=== PATIENT | male | born 1955 | race Caucasian/White ===

== ENCOUNTER 2019-08-18 11:19 | Inpatient (IN) ==
[2019-08-18 11:57] LABS: ALLEN TEST YES; BE 5.5 mmoll (-3.0-3.0); BLOOD TYPE ARTERIAL; HCO3-(ACT) 29.1 mmoll (20.0-26.0); METHB 0.3 % (0.0-1.5); O2(CT) 15.6 mL/dL (15.0-23.0); O2HB 93.8 % (95.0-99.0); PCO2(98.6) 42 mmHg (35-45); PO2(98.6) 62 mmHg (60-100); SAMPLE BLOOD; SAO2 96.8 % (95.0-100.0); THB 11.8 g/dL (11.5-17.4); pH(98.6) 7.46 (7.35-7.45)
[2019-08-18 11:59] LABS: MODALITY ROOM AIR
[2019-08-18 12:05] LABS: URINE SOURCE CLEAN CATCH
[2019-08-18 12:08] LABS: BILIRUBIN URINE NEGATIVE (NEGATIVE); BLOOD URINE NEGATIVE (NEGATIVE); COLOR STRAW; GLUCOSE URINE NEGATIVE (NEGATIVE); KETONE URINE NEGATIVE (NEGATIVE); LEUKOCYTES URINE NEGATIVE (NEGATIVE); NITRITE URINE NEGATIVE (NEGATIVE); PH URINE 6.5; PROTEIN URINE NEGATIVE (NEGATIVE); SP GRAVITY URINE 1.009; TURBIDITY URINE CLEAR (CLEAR); UR EPITHELIAL CELLS <10 /HPF (<10); URINE BACTERIA NEGATIVE /HPF; URINE RBC <10 /HPF (<10); URINE WBC <10 /HPF (<10); UROBILINOGEN URINE NORMAL (NORMAL)
[2019-08-18 12:09] LABS: BASO# 0.02 X1000 (0.0-0.2); BASO% 0.3 % (0.0-0.8); EOS# 0.11 X1000 (0.0-0.7); EOS% 1.9 % (0.0-10.0); HEMATOCRIT 37.5 % (42.0-52.0); HEMOGLOBIN 12.4 g/dL (14.0-18.0); LYMPH# 1.58 X1000 (1.2-3.4); LYMPH% 27.6 % (20.5-51.1); MCH 29.8 PG (27-31); MCHC 33.1 g/dL (33-37); MCV 90.1 FL (81-99); MONO# 0.45 X1000 (0.11-0.59); MONO% 7.9 % (1.7-9.3); MPV 9.5 FL (7.4-10.4); NEUT# 3.57 X1000 (1.4-6.5); NEUT% 62.3 % (42.2-75.2); PLT 214 X1000 (130-400); RBC 4.16 XMIL (4.7-6.1); RDW 12.7 % (11.5-14.5); WBC 5.73 X1000 (4.8-10.8)
--- NOTE | 2019-08-18 12:16 | Diag Imaging Result Doc PS360 ---
CT HEAD W/O CONTRAST - 08/18/2019 INDICATION: AMS COMPARISON: None FINDINGS: The ventricles and sulci are normal in size and contour. No intracranial mass or hemorrhage. There is some trace subcortical white matter chronic microvascular ischemia, mainly in the right frontal lobe. The skull is intact. The sinuses, mastoids, and middle ears are clear. IMPRESSION: No acute process. This exam was performed using automated exposure control, adjustment of mA or kV according to patient size, and/or use of iterative reconstruction technique Electronically signed by Pepe Donahue 08/18/2019 12:14 PM
[2019-08-18 12:28] LABS: UR AMPHETAMINES QUAL NONE DETECTED (NONE DETECT); UR BARBITUATES QUAL NONE DETECTED (NONE DETECT); UR BENZODIAZEPIN QUAL NONE DETECTED (NONE DETECT); UR CANNABINOIDS QUAL NONE DETECTED (NONE DETECT); UR COCAINE QUAL NONE DETECTED (NONE DETECT); UR METHADONE QUAL NONE DETECTED (NONE DETECT); UR OPIATES QUAL NONE DETECTED (NONE DETECT); UR OXYCODONE QUAL NONE DETECTED (NONE DETECT); UR PCP QUAL NONE DETECTED (NONE DETECT)
[2019-08-18 12:38] LABS: AGAP 11; ALB/GLOB RATIO 1.1; ALBUMIN 3.9 g/dL (3.5-5.0); ALKALINE PHOSPHATASE 107 U/L (32-122); BUN 25 mg/dL (8-22); CALCIUM 9.5 mg/dL (8.8-10.2); CHLORIDE 102 mmol/L (98-107); CK PROFILE 167 U/L (24-204); COSMO 286; CREATININE 1.2 mg/dL (0.7-1.2); ESTIMATED GFR > 60; GLUCOSE 109 mg/dL (70-104); GOT 21 U/L (10-34); GPT 15 U/L (10-44); INR 0.95; POTASSIUM 4.2 mmol/L (3.5-5.1); PROTIME 12.7 Seconds (11.0-16.0); SODIUM 141 mmol/L (136-145); TCO2 28 mmol/L (25-35); TOTAL PROTEIN 7.4 g/dL (6.3-8.3)
[2019-08-18 12:39] LABS: PTT 30.5 Seconds (22.3-41.8)
--- NOTE | 2019-08-18 12:55 | EKG Report ---
Test Performed on : 08/18/2019 12:44:19 PM Test Reason : SOB Blood Pressure : / mmHG Vent. Rate : 072 BPM Atrial Rate : 072 BPM P-R Int : 170 ms QRS Dur : 086 ms QT Int : 360 ms P-R-T Axes : 056 -31 241 degrees QTc Int : 394 ms Normal sinus rhythm. Left axis deviation T wave abnormality, consider lateral ischemia Abnormal ECG When compared with ECG of 07-JUL-2019 19:44, (Unconfirmed) No significant change was found Unconfirmed Result
--- NOTE | 2019-08-18 14:37 | Diag Imaging Result Doc PS360 ---
CT ANGIOGRM PULMONARY ARTERIES - 08/18/2019 INDICATION: difficulty breathing, left arm swollen TECHNIQUE: Axial CT images were obtained after administering intravenous contrast. Coronal MIP images were generated. COMPARISON: None FINDINGS: There is no pulmonary embolism. There is mild cardiomegaly. There is some thinning of the myocardium at the cardiac apex, likely an old apical infarction. Great vessels are normal. The SVC and left central veins are patent. No adenopathy. The lungs and airways are clear. Upper abdominal images are unremarkable. Bones are intact and well mineralized. IMPRESSION: Cardiomegaly. Probable old left ventricular apex infarction. No acute process. This exam was performed using automated exposure control, adjustment of mA or kV according to patient size, and/or use of iterative reconstruction technique Electronically signed by Pepe Donahue 08/18/2019 2:35 PM
--- NOTE | 2019-08-18 15:29 | PROVIDER DOCUMENTATION ---
This chart was entered by Krissy Byers Scribe, acting as scribe for Suhail Samuels MD. HPI-General Adult - General Chief Complaint: Syncope Stated Complaint: SYNCOPE EPISODES Time Seen by Provider: 08/18/19 11:22 Source: patient, family, EMS Allergies/Adverse Reactions: Patient Allergies Allergy/AdvReac Type Severity Reaction Status Date / Time No Known Allergies Allergy Verified 07/07/19 18:09 Home Medications: Home Medication List Medication Instructions Recorded Confirmed Last Taken Type Aspirin EC 81 mg PO DAILY 03/11/18 08/18/19 Unknown History Atorvastatin Calcium 40 mg PO DAILY 03/11/18 08/18/19 Unknown History Tamsulosin HCl 0.4 mg PO DAILY 03/11/18 08/18/19 Unknown History Buprenorphine HCl/Naloxone HCl 1 tab SUBLINGUAL BID 08/18/19 08/18/19 Unknown History [Buprenorphin-Naloxon 8-2 mg Sl] Carvedilol 6.25 mg PO BID 08/18/19 08/18/19 Unknown History Cholecalciferol (Vit D3) [Vitamin 1 tab PO DAILY 08/18/19 08/18/19 Unknown History D3] Clopidogrel Bisulfate [Clopidogrel] 75 mg PO DAILY 08/18/19 08/18/19 Unknown History Divalproex Sodium [Divalproex 3 tab PO DAILY 08/18/19 08/18/19 Unknown History Sodium ER] Duloxetine HCl 60 mg PO DAILY 08/18/19 08/18/19 Unknown History Furosemide 40 mg PO DAILY 08/18/19 08/18/19 Unknown History Gabapentin 1 cap PO TID 08/18/19 08/18/19 Unknown History Lisinopril 40 mg PO DAILY 08/18/19 08/18/19 Unknown History Mirtazapine 15 mg PO HS 08/18/19 08/18/19 Unknown History Multivitamin [Multivitamins] 1 ea PO DAILY 08/18/19 08/18/19 Unknown History Naloxone HCl [Narcan] 4 mg NS ONCE PRN PRN 08/18/19 08/18/19 Unknown History Pantoprazole Sodium 40 mg PO DAILY 08/18/19 08/18/19 Unknown History Sildenafil Citrate 100 mg PO DIRECTED 08/18/19 08/18/19 Unknown History Spironolactone 25 mg PO DAILY 08/18/19 08/18/19 Unknown History - History of Present Illness -Gen Adult Nature of Presenting Problems: Patient is a 63 y/o male presenting to the ED today c/o syncopal episodes. Patient was picked up by EMS at [facility] after falling down from a suspected syncopal episodes. Patient reports he recalls the incident and states he has had multiple episodes over the last 2-3 days. Patient's reports that patient has been "falling asleep standing up" since Friday. reports patient was seen Friday at [facility] because of these symptoms and altered mental status. states they thought his problems was "neurological". Patient reports he is supposed to be scheduling for a pacemaker and defibrillator implant soon with the [facility] for CHF. Patient takes Sub oxone and was given 2 Narcan in route to the ER with EMS and they report that he became angry but did not become significantly more alert. Patient also complains of shortness of breath. Patient is drowsy throughout exam. Denies all other signs/symptoms. Onset/Duration: reports: 3 days ago Timing: reports: intermittent Associated Symptoms: reports: syncope Similar Symptoms Previously?: Yes Recently seen or treated by another doctor?: Yes ([facility]) Review of Systems - Adult - REVIEW OF SYSTEMS - ADULT Constitutional: reports: no symptoms reported. denies: chills, fever Eyes: reports: no symptoms reported Ears, Nose, Mouth & Throat: reports: no symptoms reported Cardiovascular: reports: no symptoms reported. denies: chest pain Respiratory: reports: no symptoms reported, shortness of breath. denies: cough Gastrointestinal: reports: no symptoms reported. denies: abdominal pain, diarrhea, nausea, vomiting Genitourinary: reports: no symptoms reported Musculoskeletal: reports: no symptoms reported Integumentary: reports: no symptoms reported Neurological: reports: see HPI, syncope Psychiatric: reports: no symptoms reported Endocrine: reports: no symptoms reported Hematologic/Lymphatic: reports: no symptoms reported Allergic/Immunologic: reports: no symptoms reported All Other Systems: Reviewed and Negative Past History - Adult - PAST MEDICAL HISTORY-ADULT Review of Records: reports: Old Records Reviewed, Nursing Assessment Review, Medications Reviewed, Social history reviewed & non-contributory. Major Childhood Illnesses: reports: denies history Cardiovascular: reports: A-Fib, CHF, HTN, hyperlipidemia, NH, other Respiratory: reports: COPD Gastrointestinal: reports: GERD Obstetrical/Gynecological: reports: denies history Genitourinary: reports: denies history Musculoskeletal: reports: denies history Neurological: reports: denies history Endocrine/Immune: reports: denies history Other Conditions: reports: denies history - PRIOR SURGERIES/PROCEDURES Surgical/Procedure History: reports: other (Cardiac stents) - IMMUNIZATION STATUS Childhood Immunizations: See Nurse Assessment Flu Vaccine: See Nurse Assessment - FAMILY HISTORY Family History: reviewed, not pertinent Physical Exam-General - PHYSICAL EXAM-ADULT Initial Vital Signs Reviewed: Yes - CONSTITUTIONAL General Appearance: no apparent distress, slow to respond, other (drowsy) - EYES Eyes: pink conjunctivae, other (pinpoint pupils) - HEAD, EARS, NOSE, MOUTH & THROAT HENMT: normocephalic/atraumatic, moist mucous membranes - NECK Neck: full range of motion, normal inspection - RESPIRATORY Respiratory: lungs clear, normal breath sounds, no respiratory distress, no accessory muscle use - CARDIOVASCULAR Cardiovascular: regular rate, rhythm, no edema - GASTROINTESTINAL (ABDOMEN) Abdominal Exam: non tender, soft - LYMPHATIC Lymphatic: no adenopathy - MUSCULOSKELETAL Back Exam: normal inspection Extremity: normal range of motion, normal gait, normal inspection - SKIN Integumentary: normal color, normal turgor, warm/dry - NEUROLOGIC Neurologic: grossly normal, no motor/sensory deficits - PSYCHIATRIC Psych/Mental Status: normal mood/affect, normal thought content, normal thought process Progress - PLAN OF CARE/RESULTS Result Diagrams: 08/18/19 11:53 08/18/19 11:53 - REASSESSMENT Reassessment #1 Time Reassessed: 14:48 Status: unchanged (Patient continues to become apneic when falls asleep, and is falling asleep every few minutes. CTs and labs are essentially normal. Patient requests transfer to the [facility] where he is supposed to be on the schedule for AICD implantation) - EKG 1 Time of EKG reading by physician:: 13:01 EKG Read and Signed by:: Suhail Samuels EKG Interpretation (*Must complete 3 of following elements*): Abnormal Rate: 72 Rhythm: Normal sinus rhythm [place]: left QRS: other (poor R-wave progression) ST Wave: non-specific ST changes - CT/MRI 1 CT Study: Head Impression: See EMR Report (CT HEAD W/O CONTRAST - 08/18/2019 INDICATION: AMS COMPARISON: None FINDINGS: The ventricles and sulci are normal in size and contour. No intracranial mass or hemorrhage. There is some trace subcortical white matter chronic microvascular ischemia, mainly in the right frontal lobe. The skull is intact. The sinuses, mastoids, and middle ears are clear. IMPRESSION: No acute process. This exam was performed using automated exposure control, adjustment of mA or kV according to patient size, and/or use of iterative reconstruction technique Electronically signed by Pepe Donahue 08/18/2019 12:14 PM 08/18/19 1214 Interpreting Physician: Pepe Donahue MD Dictated Date/Time: 08/18/19 1213 cc: Suhail Samuels MD; None,PCP) 2 CT Study: other (pulmonary arteriogram) Impression: See EMR Report (CT ANGIOGRM PULMONARY ARTERIES - 08/18/2019 INDICATION: difficulty breathing, left arm swollen TECHNIQUE: Axial CT images were obtained after administering intravenous contrast. Coronal MIP images were generated. COMPARISON: None FINDINGS: There is no pulmonary embolism. There is mild cardiomegaly. There is some thinning of the myocardium at the cardiac apex, likely an old apical infarction. Great vessels are normal. The SVC and left central veins are patent. No adenopathy. The lungs and airways are clear. Upper abdominal images are unremarkable. Bones are intact and well mineralized. IMPRESSION: Cardiomegaly. Probable old left ventricular apex infarction. No acute process. This exam was performed using automated exposure control, adjustment of mA or kV according to patient size, and/or use of iterative reconstruction technique Electronically signed by Pepe Donahue 08/18/2019 2:35 PM 08/18/19 1435 Interpreting Physician: Pepe Donahue MD Dictated Date/Time: 08/18/19 1433 cc: Suhail Samuels MD; None,PCP) - CONSULTS/PCP/HOSPITALIST Notification #1 *Consult/PCP/Hospitalist*: [facility] notified [id number] Time Discussed: 15:15 Reason/Comments: MA is on diversion, admit here #2 Consult: NALDO Red[place] for hospitalist Time Discussed: 15:28 Reason/Comments: Admit to [facility] Consult Disposition: Will see in ED, Admit Departure - Departure Date of Disposition Decision: 08/18/19 Time of Disposition Decision: 15:28 DIAGNOSIS: Sleep apnea in adult, Congestive heart failure with left ventricular diastolic dysfunction, NYHA class 3, Syncope and collapse determined by examination Altered mental status, unspecified Qualifiers: Altered mental status type: somnolence Qualified Code(s): R40.0 - Somnolence Disposition: ADMITTED INPATIENT 09 Certified Medical Emergency: Emergent Condition: Fair Referrals and Follow-Ups: None,PCP [Primary Care Provider] - - Critical Care Note This patient required my direct & personal management of CC.: Yes Total Time (mins): 35 Critical Care Statement: This patient required my direct personal management to treat or rule out processes, the absence of which, could potentiallly result in sudden, clinically significant life or limb threatening deterioration. Attestation - Physician/ ELIZABETH Attestation Patient care was provided by Advanced Practice Provider:: No The physician spent face to face time with patient:: Yes Advanced Practice Provider documentation review:: Supervising physician onsite and consulted in the evaluation and care of this patient. The physician did have a face to face encounter with the patient. This chart was documented by the indicated scribe, (Krissy Byers, Torres) a nd accurately reflects the services I performed and decisions made by me, Suhail Samuels MD, as attested by the provider's signature.
[2019-08-18] MEDS ORDERED: ZOFRAN IV PRN (17:49)
[2019-08-18] MEDS ORDERED: SILDENAFIL CITRATE 100 MG PO SCH (18:13)
[2019-08-18] MEDS: LOVENOX SUBQ SCH (18:50)
--- NOTE | 2019-08-18 21:31 | HISTORY AND PHYSICAL ---
PRIMARY CARE PHYSICIAN: Dr. Mckay at the [facility] in [place]. CHIEF COMPLAINT: Syncopal episode. HISTORY OF PRESENT ILLNESS: Mr. Gtz is a 63-year-old male with a past medical history of CHF, sleep apnea, bipolar disorder, BPH, chronic back pain with opioid abuse on Suboxone, COPD, neuropathy, vitamin D deficiency, coronary artery disease with OK and stent placement. The patient does present to the ER today with complaints of syncopal episode today. The patient's , who is at the bedside, states that today he was at [facility] and he had an episode where he was drifting off to sleep and almost fell. They had to pull a chair up to catch him. He did not fall or hit the floor. The patient and state that he has been having more and more episodes where he has been very lethargic. Patient will drift off to sleep, but wakes suddenly back up. The patient does have significant heart history. states that he is supposed to have a pacemaker defibrillator placed at the [facility] in [place] sometime soon because he has decreased heart function. Ambulance was called at the [facility]. The patient was given a dose of Narcan in the ambulance. It did not have any effect. The patient does have significant episodes while I am speaking with him while he will drift off and wakes suddenly back up. The patient does deny any fever, chills, flu-like symptoms, cough, congestion, neck pain, stiffness, excessive thirst, chest pain, palpitations, orthopnea, PND, leg edema, dyspnea, hemoptysis, nausea, vomiting, hematopoiesis, diarrhea, constipation, dysuria, hematuria, muscle pain or weakness, dizziness, or any other pertinent symptoms at this time. REVIEW OF SYSTEMS: A 10 point review of systems has been obtained, are negative, except that which was stated above in HPI. PAST MEDICAL HISTORY: 1. Coronary artery disease with OK, status post stent placement in 2011. 2. Sleep apnea. 3. Bipolar disorder. 4. Benign prostatic hypertrophy. 5. Congestive heart failure. Unknown EF. 6. Chronic back pain with neuropathy and history of opiate abuse, on Suboxone for over a year. 7. Chronic obstructive pulmonary disease. 8. Vitamin D deficiency. 9. Major depression. PAST SURGICAL HISTORY: 1. Left 5th digit removed. 2. Coronary artery disease with stent placement in 2011. FAMILY HISTORY: Significant for heart disease in his father and Alzheimer's disease in his mother. SOCIAL HISTORY: Patient does live with his in [place]. He states he vapes. He denies any alcohol or illicit drug use. He does state that he used to do cocaine and he used to abuse opiates. He is a retired electricity. ALLERGIES: No known drug allergies. HOME MEDICATIONS: 1. Flomax 0.4 mg p.o. daily. 2. Atorvastatin calcium 40 mg p.o. daily. 3. Aspirin 81 mg p.o. daily. 4. Buprenorphine HCl/naloxone HCl 1 tab sublingual b.i.d. 5. Carvedilol 12.5 mg, 6.25 mg p.o. b.i.d. 6. Depakote 500 mg tablets extended release 3 tablets p.o. daily. 7. Mirtazapine 30 mg tablets 15 mg p.o. at bedtime. 8. Narcan spray 4 mg once p.o. p.r.n. 9. Protonix 40 mg p.o. daily. 10. Spironolactone 25 mg p.o. daily. 11. Vitamin D3 1000 units 1 tablet p.o. daily. 12. Plavix 75 mg day p.o. daily. 13. Duloxetine 60 mg p.o. daily. 14. Furosemide 40 mg p.o. daily. 15. Gabapentin 300 mg p.o. t.i.d. 16. Lisinopril 40 mg p.o. daily. 17. Multivitamin 1 tablet p.o. daily. 18. Sildenafil citrate 100 mg p.o. as directed. PHYSICAL EXAMINATION: VITAL SIGNS: Temperature 97.6, heart rate 76, respiratory rate 16, blood pressure 135/81, O2 saturation 96% on room air. GENERAL: This is a 63-year-old male. He is well nourished and well developed, in no acute distress. HEENT: Atraumatic, normocephalic. Pupils equal, round, reactive to light. Mucous membranes are moist. NECK: Supple. No lymphadenopathy. Trachea is midline. No JVD. CARDIOVASCULAR: Regular rate and rhythm. There is a positive gallop noted. RESPIRATORY: Lung sounds are clear with equal chest excursion. Respirations are nonlabored. No accessory muscle usage. GI: Abdomen is round, nontender, nondistended. Bowel sounds present x4. : There is no suprapubic tenderness noted. Patient is voiding without difficulty. NEUROLOGIC: Patient is awake. He is alert. He does keep falling off to sleep when he is not speaking to me, but he will wake back up and converse appropriately with me. He is not confused. MUSCULOSKELETAL: Full distal strength noted. No abnormalities. No deformities. EXTREMITIES: No clubbing, no cyanosis, no edema. DP and PT pulses are present and palpable. SKIN: Warm, dry, intact. No rashes. No bruises. No diaphoresis. LABS AND DIAGNOSTICS: White blood cell count 5.73, hemoglobin 12.4, hematocrit 37.5, platelet count 214,000. D-dimer 1.23, pH 7.46, CO2 42, PO2 62, bicarb 29.1, base excess 5.5, oxyhemoglobin is 93.8, carboxyhemoglobin is 2.70, O2 saturation is 96.8. Sodium is 141, potassium is 4.2, carbon dioxide 28, BUN is 25, creatinine is 1.2. Estimated GFR is greater than 60, glucose is 109, calcium is 9.5. ProBNP is 478. Urinalysis is negative. Urine drug screen is negative. Depakote level is 42.9. Serum alcohol level is none. Pulmonary arteriogram does show cardiomegaly and probable old left ventricular apex infarction, but no acute process. Head CT just shows no acute process. EKG shows normal sinus rhythm at 72 beats per minute, left axis deviation, T-wave abnormality, consider lateral ischemia. ASSESSMENT AND PLAN: 1. Syncopal episode. We will admit this patient to the medical floor. We will place this patient on neuro checks q.4 hours vital signs, supplemental O2, strict intake and output, benefits counselor, healthy heart diet. I have consulted Cardiology. I am going to repeat labs. I have resumed some of the patient's home medications. 2. Congestive heart failure, unknown ejection fraction. I am going to do an echocardiogram, a carotid ultrasound, EKGs q.8 x2. CK and troponins. A TSH. Repeat labs in the morning. I have consulted Cardiology to see this patient. We appreciate their recommendations. 3. History of coronary artery disease with myocardial infarction and history of stents in 2011. I have resumed the patient's home medications and have consulted Cardiology and ordered an echocardiogram. 4. History of chronic back pain and neuropathy and opioid abuse on Suboxone. The patient is continuously falling asleep while I am talking to him and waking back up. The patient states he takes his Suboxone daily, however his drug screen is negative. The Narcan did not work when they gave it to him in the ambulance. I do not know if he is actually taking the Suboxone. We will hold off on the Suboxone right now and see if this helps the patient's mentation. 5. History of sleep apnea. The patient does not wear a CPAP and has never actually had a sleep study. We will possibly need to get this done at discharge on patient. The patient's O2 saturation in the ER kept dropping into the lower 90s and his respiratory rate kept dropping to 0 when he would go to sleep. We will provide the patient with supplemental O2. We may have to order a CPAP at bedtime. 6. History of bipolar disorder and major depression disorder. I have resumed the patient's home medications. 7. Chronic obstructive pulmonary disease. This is not acute exacerbation. I have provided the patient with DuoNeb p.r.n. and supplemental O2. 8. Tobacco dependency. I provided him with smoking cessation information for greater than 5 minutes. I will give him an nicotine patch. 9. Deep vein thrombosis prophylaxis, Lovenox. Dictated by NALDO Gonzalez for [place] MD cc: MD Dr. Nely Aviles
[2019-08-18] MEDS: REMERON PO SCH (23:16)
[2019-08-18] MEDS: COREG PO SCH (23:17)
[2019-08-18] MEDS: NEURONTIN PO SCH (23:17)
--- NOTE | 2019-08-19 07:32 | EKG Report ---
Test Performed on : 08/19/2019 07:15:29 AM Test Reason : syncopal episode Blood Pressure : / mmHG Vent. Rate : 058 BPM Atrial Rate : 058 BPM P-R Int : 166 ms QRS Dur : 094 ms QT Int : 380 ms P-R-T Axes : 074 058 268 degrees QTc Int : 373 ms Sinus bradycardia. with sinus arrhythmia. Low voltage QRS ST & T wave abnormality, consider inferior ischemia Abnormal ECG When compared with ECG of 18-AUG-2019 12:44, (Unconfirmed) QRS axis shifted right T wave inversion now evident in Inferior leads Confirmed by Aracely Myers MD ([id number]) on 08/19/2019 6:48:03 PM
--- NOTE | 2019-08-19 08:02 | Diag Imaging Result Doc PS360 ---
EXAM: CHEST-PORTABLE INDICATION: syncopal episode TECHNIQUE: One view COMPARISON: 07/07/2019 FINDINGS: The lungs are grossly clear. There is no discrete pleural fluid collection or pneumothorax. There is stable cardiomegaly. Central vasculature is unremarkable. IMPRESSION: Stable cardiomegaly. No definite acute pathology by plain radiograph. Electronically signed by Albert Cornejo 08/19/2019 8:00 AM
[2019-08-19] MEDS: DUONEB (A & A) INH PRN ×2 (08:32→19:57)
[2019-08-19 08:46] LABS: BASO# 0.03 X1000 (0.0-0.2); BASO% 0.8 % (0.0-0.8); EOS# 0.12 X1000 (0.0-0.7); EOS% 3.3 % (0.0-10.0); HEMATOCRIT 35.9 % (42.0-52.0); HEMOGLOBIN 11.5 g/dL (14.0-18.0); LYMPH% 51.5 % (20.5-51.1); MCH 29.3 PG (27-31); MCV 91.3 FL (81-99); MONO# 0.36 X1000 (0.11-0.59); MONO% 9.8 % (1.7-9.3); MPV 9.7 FL (7.4-10.4); NEUT# 1.28 X1000 (1.4-6.5); NEUT% 34.6 % (42.2-75.2); PLT 205 X1000 (130-400); RBC 3.93 XMIL (4.7-6.1); RDW 12.8 % (11.5-14.5); WBC 3.69 X1000 (4.8-10.8)
[2019-08-19 08:52] LABS: AGAP 9; BUN 25 mg/dL (8-22); CALCIUM 9.3 mg/dL (8.8-10.2); CHLORIDE 103 mmol/L (98-107); COSMO 291; CREATININE 1.1 mg/dL (0.7-1.2); ESTIMATED GFR > 60; GLUCOSE 94 mg/dL (70-104); MAGNESIUM 2.7 mg/dL (1.5-2.7); POTASSIUM 3.9 mmol/L (3.5-5.1); SODIUM 144 mmol/L (136-145); TCO2 32 mmol/L (25-35)
[2019-08-19] MEDS: PLAVIX PO SCH (09:02)
[2019-08-19] MEDS: DEPAKOTE ER PO SCH (09:02)
[2019-08-19] MEDS: ALDACTONE PO SCH (09:02)
[2019-08-19] MEDS: ASPIRIN EC PO SCH (09:02)
[2019-08-19] MEDS: COREG PO SCH ×2 (09:02→22:25)
[2019-08-19] MEDS: THERA M PLUS PO SCH (09:02)
[2019-08-19] MEDS: VITAMIN D PO SCH (09:02)
[2019-08-19] MEDS: CYMBALTA PO SCH (09:03)
[2019-08-19] MEDS: FLOMAX PO SCH (09:03)
[2019-08-19] MEDS: NEURONTIN PO SCH ×3 (09:03→22:25)
[2019-08-19] MEDS: PRINIVIL PO SCH (09:03)
[2019-08-19] MEDS: NICODERM PATCH TD SCH ×2 (09:03→09:07)
[2019-08-19] MEDS: PROTONIX PO SCH (09:03)
[2019-08-19] MEDS: LIPITOR PO SCH (09:03)
[2019-08-19] MEDS: LASIX PO SCH (09:03)
--- NOTE | 2019-08-19 12:14 | CARDIOLOGY CONSULTATION ---
DATE: 08/19/2019 HISTORY OF PRESENT ILLNESS: Cardiology was consulted. Patient has known coronary artery disease. Had a detailed discussion with the patient's as well. Patient has more episodes where he drifts off into sleep and has been having and battling issues with sleep. He did not have a qamar syncopal episode. He came to the emergency room. He was in [facility] where he had an episode where he was drifting off to sleep. They had to pull a chair and catch him. He did not have a qamar syncopal episode. He denies any palpitations. states that he has been having episodes where he goes for a length of time without any sleep. Subsequently, when he does sleep, it is intermittent. In the echocardiogram lab today we noted that he fell asleep and had apneic spells as well suggestive of sleep apnea. He denies any chest pain. He has known coronary artery disease, having had stent placement, myocardial infarction in 2011. He is being evaluated for an AICD placement at the [facility] in [place], and they are expecting a call this week for likely placement in the following week. He denies any cough or expectoration. Denies chest pain. REVIEW OF SYSTEM: A 14-point review of systems was done.Gastrointestinal System: There is no history of nausea, vomiting, or diarrhea. There is no history of hematemesis or melena. Central Nervous System: There is no focal weakness to suggest a CVA or TIA. Genitourinary System: There is no dysuria or hematuria. PAST MEDICAL AND SURGICAL HISTORY: 1. Coronary artery disease, myocardial infarction, stent placement in 2011. 2. Severe LV dysfunction. 3. Sleep apnea. 4. Bipolar disorder. 5. Benign prostatic hypertrophy. 6. History of heart failure in the past. 7. Chronic back pain. History of opiate abuse on Suboxone for over 1 year. 8. Vitamin D deficiency major depression. 9. COPD. 10. Other surgeries include left 5th digit removed. SOCIAL HISTORY: Patient lives in [place]. Denies any alcohol or illicit drug abuse. HOME MEDICATIONS: Flomax 0.4, atorvastatin for 40, aspirin 81, buprenorphine naloxone 1 tablet sublingual b.i.d., Coreg 12.5 and 6.25 b.i.d., Depakote 500 mg extended release 3 tablets daily, mirtazapine 30 mg tablet 15 mg at bedtime, Narcan spray p.r.n., Protonix 40, spironolactone 25, vitamin D, Plavix 75, duloxetine 60, furosemide 40, gabapentin 300 b.i.d. lisinopril 40, sildenafil as directed. PHYSICAL EXAMINATION: Vital Signs: On examination, blood pressure was 135/81. Neck: Jugular venous pressure was normal. Cardiac: First and second heart sounds were heard. There was no S3 gallop. Respiratory System: Normal air entry. There is no crepitations or rhonchi. Abdomen: Soft, nontender. There was no guarding or rigidity. Bowel sounds were heard. Central nervous system: Alert, oriented, was moving all 4 extremities. Extremities: Examination of extremities revealed no pedal edema. LABORATORY EXAMINATION: Revealed sodium of 144, potassium 3.9. BUN 25, creatinine 1.1. Troponin negative. ProBNP 478. WBC 3.6, hemoglobin 11.5, hematocrit 35, platelet count of 209,000. CT scan of the head was unremarkable. Pulmonary arteriogram was done, which revealed cardiomegaly. No acute process otherwise. ASSESSMENT AND PLAN: 1. Mr. Jerry Gtz is a 63-year-old gentleman with history of coronary artery disease, congestive heart failure in the past, severe left ventricular dysfunction, benign prostatic hypertrophy, chronic obstructive pulmonary disease, sleep apnea, bipolar disorder who is admitted with main complaints related to sleep. He has episodes of being wide awake for length of time and days, and then when he does fall asleep it is unrestful. We observed in our echocardiogram lab that he was having apneic spells while he is asleep. From a cardiac standpoint, his cardiac enzymes are negative. 2. He is on multiple medications for bipolar disorder. His QTc was normal. Telemetry did not reveal any significant dysrhythmia so far. 3. We will get an echocardiogram. 4. As far as his home medications are concerned, he is on ARELIS inhibitors and Coreg from a cardiac standpoint, in addition to spironolactone. I have not made any changes. He is scheduled to undergo an AICD placement at the [facility]. I have not made any changes. No further recommendations other than echocardiogram at the present time. Thank you for the consult. We will follow hospital course. cc: Judah Blake MD
[2019-08-19 12:18] LABS: ALLEN TEST YES; BE 5.6 mmoll (-3.0-3.0); BLOOD TYPE ARTERIAL; HCO3-(ACT) 29.2 mmoll (20.0-26.0); METHB 1.4 % (0.0-1.5); O2(CT) 16.2 mL/dL (15.0-23.0); O2HB 94.3 % (95.0-99.0); PCO2(98.6) 41 mmHg (35-45); PO2(98.6) 70 mmHg (60-100); SAMPLE BLOOD; SAO2 97.1 % (95.0-100.0); THB 12.2 g/dL (11.5-17.4); pH(98.6) 7.47 (7.35-7.45)
--- NOTE | 2019-08-19 13:49 | ECHO REPORT ---
ORDER DATE: 08/18/2019 MEASUREMENTS: Septal thickness 0.6, left ventricular internal diameter in diastole 6.6, posterior wall thickness 0.6, aortic root 3.0, left atrium 3.9. SUMMARY: 1. Technically difficult study due to limited acoustic window quality. Intravenous echocontrast agent, Optison, was utilized to enhance endocardial definition. 2. Aortic valve is without evidence of structural abnormality and appears to open adequately on 2- dimensional images. The peak gradient across the aortic valve by Doppler is 10 to 15 mmHg. There is mild aortic regurgitation. Mild mitral annular calcification is demonstrated. There is trace mitral regurgitation. Tricuspid valve is without evidence of structural abnormality, while pulmonic valve is not well demonstrated. The aortic root is normal in size. 3. Mild to moderate left ventricular enlargement with normal wall thickness demonstrated. The estimated left ventricular ejection fraction is approximately 25%. There is akinesis of the mid and apical septum, apical anterior wall, and apex. Following the administration of intravenous echocontrast agent, Optison, there is no evidence of apical thrombus. The left atrium is borderline enlarged. The right atrium and right ventricle are grossly normal in size with grossly preserved right ventricular systolic function. 4. No pericardial effusion. 5. Inferior vena cava not well demonstrated. CONCLUSIONS: 1. Technically difficult study. 2. Mild aortic regurgitation. 3. Mild to moderate left ventricular enlargement with estimated left ventricular ejection fraction of approximately 25% in the setting of akinesis of the mid and apical septum, apical anterior wall, and apex. 4. Borderline left atrial enlargement. cc: Wood Rhoades MD
--- NOTE | 2019-08-19 15:59 | PROVIDER PROGRESS NOTE ---
Progress Note Patient has been seen and examined. A full dictation to follow.
--- NOTE | 2019-08-19 18:48 | PROGRESS NOTE ---
DATE: 08/19/2019 SUBJECTIVE: The patient seems to be a little bit better compared with yesterday, echocardiogram showed an ejection fraction of 25%. Cardiology Department following this patient and I also asked Pulmonary Department to evaluate this patient. I do believe that he has been having more problems with sleep apnea and/or bipolar disorder or actually both combined. As per the and the patient. He has not been able to sleep too much. I will wait for the final report. 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 OBJECTIVE: Vital signs: Temperature 98.4 degrees, pulse 75, respiratory rate 16, blood pressure 118/79, oxygen saturation 96 on room air. HEENT: Head normocephalic. No trauma. PERRLA. Neck: Is supple. No JVD. No masses. Central trachea. Chest: Clear to auscultation. No wheezing. No rales. Abdomen: Soft. Neurological: He has been awake, alert. He has been answering my questions. He seems to be anxious and worried about the situation. Extremities: No edema. LABORATORY: WBC 3.6, hemoglobin 11.5, hematocrit 35.9, platelets 205,000. Sodium 144, potassium 3.9, chloride 103, bicarbonate 32, BUN 25, creatinine 1.1, glucose 94, calcium 9.3, magnesium 2.7, TSH 1.1. ASSESSMENT AND PLAN: 1. Patient states that he has been having presyncope and syncopal episode, I do believe he has been having problem with sleep apnea. I have requested Dr. Murguia to evaluate this patient because probably he needs to get sleep study done. As per the and the patient, he wakes up gasping for air and he has been having apnea episodes while he is sleeping, I have requested to use a CPAP machine during this hospitalization during the night. 2. Congestive heart failure, it looks like the ejection fraction is low at 25%, cardiology Department on board. I will wait for more recommendations. 3. History of coronary artery disease and myocardial infarction with a history of stents in 2011, continue with the same management, same medications. 4. History of chronic back pain and neuropathy with opiate abuse and he is now on Suboxone. 5. Likely sleep apnea as per #1. 6. History of bipolar disorder and major depressive disorder, continue with home medications. 7. Chronic obstructive pulmonary disease, not in acute exacerbation. 8. Tobacco abuse. This patient has been highly advised against tobacco use. I will continue with daily cessation education. 9. Deep vein thrombosis prophylaxis with Lovenox. cc: West Fitzpatrick MD
--- NOTE | 2019-08-19 20:19 | PULMONOLOGY CONSULTATION ---
DATE: 08/19/2019 REQUESTING PROVIDER: West Fitzpatrick MD REASON FOR CONSULTATION: Sleep apnea evaluation, somnolence, sleep problems. HISTORY OF PRESENT ILLNESS: This is a 63-year-old male with a medical history of sleep apnea, coronary artery disease, bipolar disorder, benign prostatic hyperplasia, congestive heart failure, chronic back pain with neuropathy, COPD, vitamin D deficiency, and major depression. He presented to the ER on 08/18/2019 with frequent syncopal episodes in last 2 to 3 days. He has been admitted to the medical floor for further evaluation and management. The patient currently just gets out of shower with mild shortness of breath on room air. The patient's is at the bedside. She actually denies syncopal episodes. She reports patient most likely falls asleep. The patient reports that he feels like he falls down without control and when he wakes up he feels some electrical shock around his extremities. He complains of "really bad memory issue" and severe sleep deprivation. He reports that he basically sleeps only 2 to 3 hours every night and then he wakes up. The patient's states patient falls asleep at any time any where. The patient also snores and stops breathing during sleep. The patient denies any fever, chills, nausea, vomiting, bowel habit change, chronic cough, wheezing, noticeable weight change, dyspnea, paroxysmal nocturnal dyspnea, urination discomfort. He does have atrial fibrillation and has been planning for defibrillator placement at [facility]. PAST MEDICAL HISTORY: 1. Obstructive sleep apnea. Not on CPAP therapy at home. 2. Chronic obstructive pulmonary disease. Last PFT done in [facility] over 4 years ago. He was told he had extreme COPD at that time, but he is not on any inhaler at home. 3. Coronary artery disease with myocardial infarction status post stent placement in 2011. 4. Benign prostatic hyperplasia. 5. Bipolar disorder. 6. Congestive heart failure. 7. Chronic back pain with neuropathy and history of opioid abuse on Suboxone for over a year. 8. Vitamin D deficiency. 9. Major depression. 10. Atrial fibrillation. PAST SURGICAL HISTORY: 1. Left 5th digit removal. 2. Coronary artery disease with stent placement in 2011. SOCIAL HISTORY: Patient lives at home with his family. He vapes. He is a former smoker and quit smoking in October 2016. He has no alcohol or illicit drug use. He does have a history of cocaine and opium abuse. FAMILY HISTORY: Significant for heart disease and Alzheimer disease. ALLERGIES: No known drug allergies. REVIEW OF SYSTEMS: A 10-point review of systems was conducted, and the pertinent is listed within the HPI, otherwise noncontributory. PHYSICAL EXAMINATION: Vital Signs: Temperature 97.5 degrees, blood pressure 133/76, pulse 78, respiratory rate 16, oxygen saturation 100% on room air. General: Obese. Sitting at the bedside chair with mild shortness of breath as patient just gets out of shower. HEENT: Atraumatic, normocephalic. Trachea midline. Mucosa pink and moist. Respiratory: Even and unlabored. Mildly increased work of breathing but no accessory muscle use. Symmetrical excursion. Clear to auscultation bilaterally. Cardiovascular: Regular rate and rhythm with S1 and S2 appreciated. Gastrointestinal: Round, nontender, obese, soft. Active bowel sounds in all 4 quadrants. Extremities: No pedal edema, no cyanosis, no clubbing. Dorsalis pedis 2+ bilaterally. Neurologic: Alert and oriented x3. Speech fluent but slowly, following simple commands. LABORATORY DATA: White blood cells 7.69, hemoglobin 11.5, hematocrit 35.9, platelets 205,000. Sodium 144, potassium 3.9, chloride 103, carbon dioxide 32, BUN 25, creatinine 1.1, glucose 94. ABG: pH 7.47, pCO2 of 41, pO2 70, HC03 29.2, base excess 5.6, oxyhemoglobin 94.3 on room air. IMAGING DATA: CT angiogram pulmonary arteries on 08/18/2019 showed cardiomegaly, probable old left ventricular apex infarction but no acute process. Chest x-ray this morning showed stable cardiomegaly and no definite acute pathology. ASSESSMENT: This is a 63-year-old male with a medical history of chronic obstructive pulmonary disease, sleep apnea, coronary artery disease, bipolar disorder, benign prostatic hyperplasia, congestive heart failure, chronic back pain, vitamin D deficiency, major depression, and atrial fibrillation. He has been admitted since 08/18/2019 with frequent syncopal episodes in the last 2 to 3 days. 1. Obstructive sleep apnea. 2. Syncope. 3. Chronic obstructive pulmonary disease, no acute exacerbation. 4. 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 PLAN: 1. We advise patient not to drive until this issue is settled. 2. We recommend NPSG, MSLT and [facility]AP [facility]. 3. We recommend outpatient PFT study. 4. Further recommendations pending hospital course. Thank you for the courtesy of this consult. Dr. Murguia did the examination, evaluation, management and orders. NALDO did the dictation for Dr. Murguia according to his direction. Dictated by NALDO Pathak for Manoj Murguia MD cc: NALDO Pathak MD [facility]
[2019-08-19] MEDS: REMERON PO SCH (22:25)
[2019-08-19] MEDS: LOVENOX SUBQ SCH (22:40)
[2019-08-20 07:51] VITALS: BP 148/76
[2019-08-20] MEDS: DEPAKOTE ER PO SCH (09:45)
[2019-08-20] MEDS: ALDACTONE PO SCH (09:54)
[2019-08-20] MEDS: FLOMAX PO SCH (09:54)
[2019-08-20] MEDS: PRINIVIL PO SCH (09:56)
[2019-08-20] MEDS: COREG PO SCH (09:56)
[2019-08-20] MEDS: LIPITOR PO SCH ×2 (09:56→10:01)
[2019-08-20] MEDS: NICODERM PATCH TD SCH (09:57)
[2019-08-20] MEDS: CYMBALTA PO SCH (09:57)
[2019-08-20] MEDS: ASPIRIN EC PO SCH (09:58)
[2019-08-20] MEDS: PLAVIX PO SCH (10:01)
[2019-08-20] MEDS: THERA M PLUS PO SCH (10:02)
[2019-08-20] MEDS: VITAMIN D PO SCH (10:02)
[2019-08-20] MEDS: LASIX PO SCH (10:02)
[2019-08-20] MEDS: PROTONIX PO SCH (10:02)
[2019-08-20] MEDS: NEURONTIN PO SCH (10:10)
[2019-08-20] MEDS ORDERED: SUBOXONE 8 MG/2 MG SL SCH (13:00)
--- NOTE | 2019-08-21 00:05 | DISCHARGE SUMMARY ---
ADMISSION DATE: 08/18/2019 DISCHARGE DATE: 08/20/2019 DISCHARGE DIAGNOSES: 1. Presyncopal episode, likely related to severe sleepiness. 2. Likely obstructive sleep apnea. 3. Congestive heart failure. 4. History of coronary artery disease and myocardial infarction. 5. History of chronic back pain and neuropathy with opiate abuse, now on Suboxone. 6. History of bipolar disorder and major depressive disorder. 7. Chronic obstructive pulmonary disease, not in exacerbation. 8. History of tobacco abuse. PROCEDURES PERFORMED: 1. Head CT scan dated 08/18/2019. Impression: No acute process. CT angiogram dated 08/18/2019. Impression: Cardiomegaly, probably old left ventricular apex infarction. No acute process. 2. Echocardiogram dated 08/18/2019, ejection fraction around 25% in the setting of akinesis of the mid and apical septum, apical anterior wall and apex. CONSULTS: Cardiology Department, Dr. Blake, Pulmonary Department, Dr. Murguia. HOSPITAL COURSE: A 63-year-old male past medical history of heart failure, bipolar disorder, CHF, BPH, back pain which is chronic with opioid abuse on Suboxone, COPD, neuropathy, vitamin D deficiency, coronary artery disease with DE and stent placement. He presented to the ER due to possible presyncope/syncopal episode. As per the , which is at the bedside, apparently they were at [facility] and he had an episode where he was drifting off to sleep and almost fell. They had to pull a chair up to catch him. He did not fall or hit the floor. As per the , he has been having a lot of episodes like that and he has been lethargic. The patient [facility] [place] [facility] soon because he has decreased heart function. He is not sleeping with the BiPAP machine or CPAP machine. I consulted both the Cardiology Department and Pulmonary Department to evaluate this patient. An echocardiogram showed an ejection fraction of 25% with apical akinesis. He slept actually yesterday for a few hours with the CPAP machine and today he feels better. He will follow up with Dr. Murguia next Friday. The Cardiology Department also recommended to follow up at [place] [facility] the [facility]. They believe that all the medications that he has been on are okay for him. His at the bedside, as well as the patient, I explained the whole situation. They seem to understand and they will go home today but they need to get the sleep study done and also the AICD placed. PHYSICAL EXAMINATION: Vital signs: Temperature 97.4 degrees, pulse 55, respiratory rate 16, blood pressure 148/76, oxygen saturation 100% on room air. HEENT: Head normocephalic, no trauma, PERRLA. Neck is supple. No JVD. No masses. Central trachea. Chest: Clear to auscultation. No wheezing. No rales. Abdomen: Soft, nontender, nondistended. No hepatosplenomegaly. Extremities: No edema, no clubbing, no cyanosis. Neurological: The patient is awake, alert. He is oriented x3. No focal deficits. Mild sleepiness. HOME MEDICATIONS: Aspirin 81 mg p.o. daily, atorvastatin 40 mg p.o. daily, Suboxone 0.5 mg sublingual t.i.d. 8/2 mg, vitamin D3 one tablet p.o. daily, Plavix 75 mg p.o. daily, divalproex sodium 500 mg tablet, 3 tablets p.o. daily, duloxetine 60 mg p.o. daily, furosemide 40 mg p.o. daily, gabapentin 300 mg p.o. t.i.d., lisinopril 40 mg p.o. daily, mirtazapine 15 mg p.o. at bedtime, multivitamin 1 tablet p.o. daily, Narcan 4 mg as needed NS, pantoprazole 40 mg p.o. daily, sildenafil 100 mg p.o. as directed, spironolactone 25 mg p.o. daily, and tamsulosin 0.4 mg p.o. daily. cc: West Fitzpatrick MD
--- NOTE | 2019-08-23 18:09 | Carotid Study ---
DATE: 08/18/2019 DATE: 08/19/2019. REFERRING PHYSICIAN: Dr. Miladis Ny OPERATIVE PHYSICIAN: Dr. Galaviz MINE WIRER: Raoul. INDICATIONS: Syncope. FINDINGS: The carotid systems were imaged bilaterally. There is no significant plaque or atherosclerotic disease. There are no elevated velocities or turbulent areas of turbulent flow. There is antegrade vertebral flow bilaterally. Percent stenosis is 0 to 39 percent bilaterally. INTERPRETATION: Unremarkable carotid imaging study. cc: Sanjay Galaviz MD
== END 2019-08-20 12:43 | disposition home or self-care (01) | DRG 312 ==
LOC: SUPCPDRO → ED 11:19 → EDIPHOLD 18:13 → 3N 21:45
PROVIDERS: ATTEND Internal Medicine